=== PATIENT | male | born 1975 | race Caucasian/White ===

== ENCOUNTER 2017-09-13 13:17 | Emergency (ER) | payer OTHER, SELFPAY ==
[2017-09-13 13:19] VITALS: BP 145/81; PULSE 108; RESP 16; TEMP 37.1; O2SAT 99; BMI 39.5
[2017-09-13] MEDS: Diphth,Pertuss(Acell),Tet Vac 0.5 ML Vial IM (13:38)
[2017-09-13] MEDS: morphine 8 MG/ML Syringe IV (13:38)
[2017-09-13] MEDS: HYDROmorphone 1 MG/ML Syringe IV (14:19)
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
[2017-09-13] MEDS: BACITRACIN 15 GM Tube 1 APPLIC TOPICAL (15:48)
[2017-09-13 15:49] VITALS: BP 155/97; PULSE 87; RESP 18; O2SAT 100; O2SAT 99
== END 2017-09-13 15:50 | disposition home or self-care (01) ==
PROVIDERS: Emergency Provider Emergency Medicine; Family Provider Family Medicine; PCP Family Medicine
DX: T24.001A Burn of unspecified degree of unspecified site of right lower limb, except ankle and foot, initial encounter (principal); T24.002A Burn of unspecified degree of unspecified site of left lower limb, except ankle and foot, initial encounter; Z23 Encounter for immunization; X08.8XXA Exposure to other specified smoke, fire and flames, initial encounter; Y93.89 Activity, other specified; Y92.89 Other specified places as the place of occurrence of the external cause; Y99.8 Other external cause status
CPT/HCPCS: 90715; 96374; 96375; 99285; A4216